=== PATIENT | female | born 1965 | race Caucasian/White ===

== ENCOUNTER → 2018-06-06 13:40 | Outpatient (REF) | payer MEDICAID, SELFPAY ==
[2018-06-06 18:45] LABS: Basophils % 0.7 % (0.1-2.0); Eosinophils # 0.4 K/mm3 (0.0-0.4); Eosinophils % 5.8 % (0.1-12.0); Hematocrit 43.5 % (37.0-47.0); Hemoglobin 13.1 g/dL (12.2-16.2); Lymphocytes # 1.9 K/mm3 (0.7-4.5); Lymphocytes % 30.3 K/mm3 (10-50); Mean Corpuscular HGB Conc 30.2 g/dL (31.8-35.4); Mean Corpuscular Hemoglobin 29.8 pg (27.0-31.2); Mean Corpuscular Volume 98.7 fl (81-99); Mean Platelet Volume 8.9 fl (7.4-10.4); Monocytes # 0.4 K/mm3 (0.1-1.0); Monocytes % 6.6 % (1.7-9.3); Neutrophils # 3.5 K/mm3 (1.8-7.8); Neutrophils % 56.6 % (37.0-80.0); Platelet Count 184 K/mm3 (142-424); Red Cell Distribution Width 14.7 % (11.5-17.5); White Blood Count 6.2 K/mm3 (4.8-10.8)
[2018-06-06 19:11] LABS: Alanine Aminotransferase 127 U/L (12-78); Albumin Level 3.7 gm/dL (3.4-5.0); Albumin/Globulin Ratio 0.9 (1.1-1.8); Alkaline Phosphatase 111 U/L (46-116); Anion Gap 10.4 mEq/L (5-15); Aspartate Amino Transferase 194 U/L (15-37); Bilirubin,Total 0.6 mg/dL (0.2-1.0); Blood Urea Nitrogen 9 mg/dL (7-18); Carbon Dioxide 30 mmol/L (21.0-32.0); Chloride 110 mmol/L (98-107); Chol/HDL Ratio 4.5 (1-3.5); Cholesterol 107 mg/dL (140-200); Creatinine,Serum 0.83 mg/dL (0.55-1.02); Estimated Glomerular Filt Rate 72 ml/min (>60); Free T4 (Free Thyroxine) 0.87 ng/dl (0.76-1.46); GFR (African American) 87 ML/MIN (>60); Globulin 4.3 gm/dl (1.3-3.2); Glucose 97 mg/dL (74-106); HDL Cholesterol 24 mg/dL (29-89); LDL Cholesterol 59 mg/dL (0-130); Potassium 4.4 mmoL/L (3.5-5.1); Sodium 146 mmol/L (136-145); Thyroid Stimulating Hormone 1.33 uIU/ml (0.358-3.740); Triglycerides 119 mg/dL (30-200); VLDL Cholesterol 24 mg/dL (0-40)
[2018-06-06 19:40] LABS: Erythrocyte Sedimentation Rate 8 mm/hr (0-30)
[2018-06-06 20:11] LABS: Hemoglobin A1C 4.3 % (0.0-7.0)
[2018-06-09 09:08] LABS: Folate 6.6 ng/mL (>3.0); Vitamin B12 511 pg/mL (232-1245); Vitamin D 25 Hydroxy 27.4 ng/mL (30.0-100.0)
== END ==
LOC: LAB 13:40
PROVIDERS: Visit Provider Nurse Practitioner Family
DX: Z79.899 Other long term (current) drug therapy (principal); R53.83 Other fatigue; M25.50 Pain in unspecified joint; R19.5 Other fecal abnormalities
CPT/HCPCS: 80053; 80061; 82607; 82652; 82746; 83036; 84439; 84443; 85025; 85651

== ENCOUNTER → 2019-07-11 14:33 | Outpatient (CLI) | payer MEDICAID, SELFPAY ==
--- NOTE | 2019-07-11 14:58 | XR_ITS ---
PROCEDURE: XR CHEST 2V CLINICAL HISTORY: cough Cough, smoker COMPARISON: CXR CHEST(2 VIEWS-NOT PORTABLE) from 05/21/2016 FINDINGS: The cardiomediastinal silhouette and pulmonary vascularity are within normal limits.Mild hyperinflation with increased AP diameter of the chest consistent with COPD. No lobar consolidation or collapseno acute bony abnormalities. IMPRESSION: No change with no acute finding, COPD Dictated by: Cristiano Tuttle MD 07/11/2019 15:25 Signed by: <Electronically signed by Cristiano Tuttle MD in [place]> 07/11/2019 15:25
[2019-07-11 15:26] LABS: INR 1.05 (0.9-1.1); Prothrombin Time 10.9 seconds (9.4-11.8)
[2019-07-11 15:30] LABS: Basophils # 0.1 K/mm3 (0-0.2); Basophils % 0.4 % (0.1-2.0); Eosinophils # 0.5 K/mm3 (0.0-0.4); Eosinophils % 3.5 % (0.1-12.0); Hematocrit 36.6 % (37.0-47.0); Hemoglobin 11.8 g/dL (12.2-16.2); Lymphocytes # 1.8 K/mm3 (0.7-4.5); Mean Corpuscular HGB Conc 32.3 g/dL (31.8-35.4); Mean Corpuscular Hemoglobin 34.5 pg (27.0-31.2); Mean Corpuscular Volume 106.8 fl (81-99); Mean Platelet Volume 7.5 fl (7.4-10.4); Monocytes # 0.6 K/mm3 (0.1-1.0); Monocytes % 4.4 % (1.7-9.3); Neutrophils # 10.9 K/mm3 (1.8-7.8); Neutrophils % 78.7 % (37.0-80.0); Platelet Count 311 K/mm3 (142-424); Red Blood Count 3.43 M/mm3 (4.20-5.40); Red Cell Distribution Width 15.3 % (11.5-17.5); White Blood Count 13.9 K/mm3 (4.8-10.8)
[2019-07-11 16:06] LABS: Alanine Aminotransferase 106 U/L (12-78); Albumin Level 3.4 gm/dL (3.4-5.0); Albumin/Globulin Ratio 0.7 (1.1-1.8); Alkaline Phosphatase 111 U/L (46-116); Anion Gap 13.4 mEq/L (5-15); Aspartate Amino Transferase 110 U/L (15-37); Bilirubin,Total 0.5 mg/dL (0.2-1.0); Blood Urea Nitrogen 18 mg/dL (7-18); Carbon Dioxide 27 mmol/L (21.0-32.0); Chloride 103 mmol/L (98-107); Chol/HDL Ratio 6.4 (1-3.5); Cholesterol 83 mg/dL (140-200); Creatinine,Serum 0.89 mg/dL (0.55-1.02); Estimated Glomerular Filt Rate 66 ml/min (>60); GFR (African American) 80 ML/MIN (>60); Globulin 4.7 gm/dl (1.3-3.2); Glucose 100 mg/dL (74-106); HDL Cholesterol 13 mg/dL (29-89); LDL Cholesterol 50 mg/dL (0-130); Potassium 3.4 mmoL/L (3.5-5.1); Sodium 140 mmol/L (136-145); Thyroid Stimulating Hormone 0.14 uIU/ml (0.358-3.740); Total Protein,Serum 8.1 gm/dL (6.4-8.2); Triglycerides 98 mg/dL (30-200); VLDL Cholesterol 20 mg/dL (0-40)
[2019-07-13 07:18] LABS: HIV Screen 4th Generation wRfx Non Reactive (Non Reactive); Hep B Core Ab, Total Negative (Negative); Hepatitis B Surface Antigen Negative (Negative)
[2019-07-14 09:41] LABS: Hep A Ab, Total Negative (Negative); Hepatitis B Surf Ab Quant <3.1 mIU/mL (Immunity>9.9); Hepatitis C Antibody >11.0 s/co ratio (0.0-0.9)
[2019-07-14 09:42] LABS: Vitamin D 25 Hydroxy 24.7 ng/mL (30.0-100.0)
[2019-07-16 23:07] LABS: HCV Genotype Charge YES; Hepatitis C Genotype 3 (.)
== END ==
PROVIDERS: PCP Emergency Medicine; Visit Provider Nurse Practitioner Family
DX: R53.83 Other fatigue (principal); Z86.19 Personal history of other infectious and parasitic diseases; R05 Cough; R06.2 Wheezing; F17.200 Nicotine dependence, unspecified, uncomplicated; E55.9 Vitamin D deficiency, unspecified
CPT/HCPCS: 36415; 71046; 80053; 80061; 82652; 84439; 84443; 85025; 85610; 86703; 86704; 86706; 86708; 87340; 87380; 87522; 87902; G0432

== ENCOUNTER → 2020-09-06 12:36 | Outpatient (CLI) | payer MEDICAID, SELFPAY ==
[2020-09-07 16:51] LABS: Covid-19 Nasal PCR Sendout UK Not Detected
== END ==
PROVIDERS: PCP Physician Assistant; Visit Provider Physician Assistant
DX: Z03.818 Encounter for observation for suspected exposure to other biological agents ruled out (principal)
CPT/HCPCS: U0003

== ENCOUNTER → 2021-07-31 19:51 | Outpatient (CLI) | payer MEDICAID, SELFPAY ==
[2021-07-31 20:23] LABS: Basophils # 0.1 K/mm3 (0-0.2); Basophils % 1.1 % (0.1-2.0); Eosinophils # 0.3 K/mm3 (0.0-0.4); Eosinophils % 4.1 % (0.1-12.0); Hematocrit 39.2 % (37.0-47.0); Hemoglobin 12.4 g/dL (12.2-16.2); Lymphocytes # 1.8 K/mm3 (0.7-4.5); Lymphocytes % 29.4 % (10-50); Mean Corpuscular HGB Conc 31.6 g/dL (31.8-35.4); Mean Corpuscular Hemoglobin 31.9 pg (27.0-31.2); Mean Corpuscular Volume 100.8 fl (81-99); Mean Platelet Volume 9.7 fl (7.4-10.4); Monocytes # 0.4 K/mm3 (0.1-1.0); Monocytes % 6.2 % (1.7-9.3); Neutrophils # 3.6 K/mm3 (1.8-7.8); Neutrophils % 59.3 % (37.0-80.0); Platelet Count 253 K/mm3 (142-424); Red Blood Count 3.89 M/mm3 (4.20-5.40); Red Cell Distribution Width 15.4 % (11.5-17.5); White Blood Count 6.1 K/mm3 (4.8-10.8)
[2021-07-31 20:39] LABS: Blood Urea Nitrogen 21 mg/dl (7-17); Estimated Glomerular Filt Rate 104 ml/min (>60); GFR (African American) 126 ML/MIN (>60)
[2021-07-31 20:40] LABS: Alanine Aminotransferase 127 U/L (12-78); Albumin Level 4.1 g/dl (3.5-5.0); Albumin/Globulin Ratio 1.1 (1.1-1.8); Alkaline Phosphatase 82 U/L (38-126); Aspartate Amino Transferase 164 U/L (14-36); Bilirubin,Total 0.3 mg/dl (0.2-1.3); Calcium 9.4 mg/dl (8.4-10.2); Carbon Dioxide 21 mmol/L (22.0-30.0); Globulin 3.9 g/dL (1.3-3.2); Glucose 101 mg/dl (74-100)
[2021-07-31 20:45] LABS: Prothrombin Time 11.9 seconds (10.1-12.5)
[2021-07-31 21:01] LABS: Anion Gap 15.4 mEq/L (5-15); Chloride 107 mmol/L (98-107); Potassium 4.4 mmoL/L (3.5-5.1); Sodium 139 mmol/L (136-145)
[2021-07-31 21:16] LABS: INR 1.01 (0.9-1.1)
[2021-08-02 05:14] LABS: Hep A Ab, IgM Negative (Negative); Hep A Ab, Total Negative (Negative); Hep B Core Ab, Total Negative (Negative); Hep B Surface Ab, Qual Non Reactive (.); Hepatitis B Surface Antigen Negative (Negative); Hepatitis C Antibody >11.0 s/co ratio (0.0-0.9)
[2021-08-02 10:31] LABS: HIV Screen 4th Generation wRfx Non Reactive (Non Reactive)
[2021-08-04 12:27] LABS: ALT (SGPT) P5P 119 IU/L (0-40); Alpha 2-Macroglobulins, Qn 347 mg/dL (110-276); Apolipoprotein A-1 96 mg/dL (116-209); Bilirubin, Total 0.2 mg/dL (0.0-1.2); Fibrosis Score 0.64 (0.00-0.21); GGT 82 IU/L (0-60); Haptoglobin 49 mg/dL (33-346); Necroinflammat Activity Grade A3-Severe activity (.); Necroinflammat Activity Score 0.75 (0.00-0.17)
[2021-08-06 13:40] LABS: HCV Genotype Charge YES; Hepatitis C Genotype 3 (.)
== END ==
PROVIDERS: Visit Provider Physician Assistant
DX: B19.20 Unspecified viral hepatitis C without hepatic coma (principal); Z11.4 Encounter for screening for human immunodeficiency virus [HIV]
CPT/HCPCS: 80053; 81596; 85025; 85610; 86703; 86704; 86706; 86708; 87340; 87380; 87522; 87902; G0432

== ENCOUNTER → 2023-08-02 23:42 | Outpatient (CLI) | payer MEDICAID, SELFPAY ==
[2023-08-02 18:57] LABS: Alanine Aminotransferase 162 U/L (12-78); Albumin Level 4.7 g/dl (3.5-5.0); Anion Gap 15.8 mEq/L (5-15); Aspartate Amino Transferase 173 U/L (14-36); Bilirubin,Total 0.5 mg/dl (0.2-1.3); Blood Urea Nitrogen 21 mg/dl (7-17); Calcium 10.1 mg/dl (8.4-10.2); Carbon Dioxide 28 mmol/L (22.0-30.0); Chloride 102 mmol/L (98-107); Estimated Glomerular Filt Rate 74 ml/min (>60); GFR (African American) 89 ML/MIN (>60); Globulin 4.7 g/dL (1.3-3.2); Glucose 88 mg/dl (74-100); Potassium 5.8 mmoL/L (3.5-5.1); Sodium 140 mmol/L (136-145); Total Protein,Serum 9.4 g/dl (6.3-8.2); Triglycerides 149 mg/dl (30-150)
[2023-08-02 18:58] LABS: Alkaline Phosphatase 94 U/L (38-126); Chol/HDL Ratio 4.9 (1-3.5); Cholesterol 143 mg/dl (140-200); HDL Cholesterol 29 mg/dl (40-60); VLDL Cholesterol 30 mg/dL (0-40)
[2023-08-02 19:09] LABS: Direct LDL Cholesterol 82.66 mg/dL (100-129)
[2023-08-02 19:17] LABS: 25-OH Vitamin D, Total 47.2 ng/mL (30-100)
[2023-08-02 19:19] LABS: Basophils % 0.7 % (0.1-2.0); Eosinophils # 0.3 K/mm3 (0.0-0.4); Hematocrit 45.3 % (37.0-47.0); Hemoglobin 13.8 g/dL (12.2-16.2); Lymphocytes # 1.7 K/mm3 (0.7-4.5); Lymphocytes % 25.5 % (10-50); Mean Corpuscular HGB Conc 30.4 g/dL (31.8-35.4); Mean Corpuscular Hemoglobin 30.2 pg (27.0-31.2); Mean Corpuscular Volume 99.4 fl (81-99); Mean Platelet Volume 10.4 fl (7.4-10.4); Monocytes # 0.5 K/mm3 (0.1-1.0); Monocytes % 7.4 % (1.7-9.3); Neutrophils # 4.1 K/mm3 (1.8-7.8); Neutrophils % 62.4 % (37.0-80.0); Platelet Count 226 K/mm3 (142-424); Red Blood Count 4.56 M/mm3 (4.20-5.40); Red Cell Distribution Width 13.5 % (11.5-17.5); White Blood Count 6.6 K/mm3 (4.8-10.8)
[2023-08-02 19:30] LABS: Thyroid Stimulating Hormone 0.83 uIU/mL (0.465-4.68)
[2023-08-02 19:48] LABS: Vitamin B12 904 pg/mL (239-931)
[2023-08-04 09:55] LABS: HIV Screen 4th Generation wRfx Non Reactive (Non Reactive)
[2023-08-06 00:07] LABS: HCV Genotype Charge YES; Hepatitis C Genotype 3 (.)
[2023-08-09 12:18] LABS: Hep A Ab, Total Negative; Hepatitis B Surface Antigen Non Reactive
[2023-08-09 12:20] LABS: Hep B Core Ab, Total Non Reactive; Hep B Surface Ab, Qual Non Reactive
[2023-08-09 12:21] LABS: Hepatitis C Antibody Reactive
[2023-08-09 12:22] LABS: Fibrosis Score 0.86
[2023-08-09 12:23] LABS: Necroinflammat Activity Grade A3; Necroinflammat Activity Score 0.87
[2023-08-09 12:24] LABS: Alpha 2-Macroglobulins, Qn 404; Haptoglobin 46
[2023-08-09 12:25] LABS: Apolipoprotein A-1 92; Bilirubin, Total 0.3
[2023-08-09 12:26] LABS: ALT (SGPT) P5P 161; GGT 246
== END ==
LOC: LAB.DROPOF 23:43
PROVIDERS: PCP Physician Assistant; Visit Provider Physician Assistant
DX: B19.20 Unspecified viral hepatitis C without hepatic coma (principal); M19.90 Unspecified osteoarthritis, unspecified site; F41.9 Anxiety disorder, unspecified; F32.9 Major depressive disorder, single episode, unspecified; I10 Essential (primary) hypertension; J44.9 Chronic obstructive pulmonary disease, unspecified; Z87.891 Personal history of nicotine dependence
CPT/HCPCS: 80053; 80061; 81596; 82306; 82607; 84443; 85025; 86703; 86704; 86706; 86708; 87340; 87380; 87522; 87902; G0432

== ENCOUNTER → 2023-08-25 16:20 | Outpatient (CLI) | payer MEDICAID, SELFPAY ==
[2023-08-27 08:53] LABS: Hep B Core Ab, Total Negative (Negative); Hep B Surface Ab, Qual Non Reactive (.)
== END ==
PROVIDERS: PCP Physician Assistant; Visit Provider Physician Assistant
DX: B19.20 Unspecified viral hepatitis C without hepatic coma (principal)
CPT/HCPCS: 36415; 86704; 86706

== ENCOUNTER 2023-09-07 19:45 | Observation (INO) | payer MEDICAID, SELFPAY ==
[2023-09-07 19:46] VITALS: BP 102/63; PULSE 95; RESP 22; TEMP 37; O2SAT 96; BMI 15.7
--- NOTE | 2023-09-07 20:19 | XR_ITS ---
PROCEDURE INFORMATION: Exam: XR Chest Exam date and time: 09/07/2023 8:28 PM Age: 57 years old Clinical indication: Cough and shortness of breath; Smoker's cough; Additional info: SOB, cough, copd, . productive cough with thickening white mucus TECHNIQUE: Imaging protocol: Radiologic exam of the chest. Views: 2 views. COMPARISON: DX XR CHEST 2V 07/11/2019 2:59 PM FINDINGS: Lungs: Underlying changes of COPD. Pulmonary vasculature grossly normal. Peribronchial thickening and perihilar streaking which may relate to bronchitis and perihilar subsegmental atelectasis. There are alveolar densities in the medial lung bases and peripheral right base which could represent atelectasis or basilar pneumonia. Possible mild component in the peripheral right mid lung as well. Left hilar granulomatous calcifications again noted. Pleural spaces: No pleural effusion. No pneumothorax. Heart/Mediastinum: Heart size normal. No tracheal/mediastinal shift. Bones/joints: No acute osseous abnormalities are identified. IMPRESSION: 1. Alveolar opacities in the medial lung bases and peripheral right base concerning for multifocal pneumonia versus atelectasis. Possible mild element in the peripheral right mid lung as well. 2. Bilateral bronchial wall thickening and perihilar streaking suggests bronchitis. 3. Underlying COPD.
--- NOTE | 2023-09-07 20:20 | HMH.EDGENADL ---
Discharge Plan Disposition Patient Disposition: Admitted Chief Complaint: Shortness of Breath/Dyspnea Prescriptions Prescriptions: No Action sertraline 100 mg tablet 100 mg PO DAILY Qty: 30 2RF metoprolol succinate [Toprol XL] 25 mg tablet extended release 24 hr 25 mg PO DAILY Qty: 30 2RF hydroxyzine pamoate [Vistaril] 50 mg capsule 50 mg PO TID PRN (Reason: anxiety) Qty: 90 2RF trazodone 50 mg tablet 50 mg PO QHS Qty: 90 3RF Referrals Follow up/Referrals: Lenore Rosales PA [Primary Care Provider] - See instructions Clinical Impressions Clinical Impression: Sepsis due to pneumonia, Asthma exacerbation in COPD, Transaminitis Discharge ED Provider: [facility] HPI General Chief complaint: Shortness of Breath/Dyspnea Stated complaint: SOA, body aches Time Seen by Provider: 09/07/23 19:52 Mode of Arrival: Wheelchair Source of Information: Patient Limitations: No Limitations Description of Symptoms (Recalled from ER Triage Doc. by RN): pt has been dealing with SOA, cough, bodyaches, for 1 week and has been treating it with OTC meds, is here today b/c is not gettng any better and pt has COPD. History of Present Illness HPI narrative: Patient is a 57-year-old male past medical history of COPD not on home oxygen, hepatitis C who presents emergency department for evaluation of shortness of breath and cough. Onset was acute, occurring approximately 1 week ago. Productive cough with persistent cough. Patient quit smoking approximately 4 days ago and has multi pack-year history. There is associated chest pain only when coughing. Decreased p.o. intake from baseline due to loss of appetite, no vomiting. No other acute complaints at this time. Related Data Previous Rx's Medication Instructions Recorded hydroxyzine pamoate 50 mg capsule 50 mg PO TID PRN anxiety #90 caps 08/02/23 (Vistaril) metoprolol succinate 25 mg 25 mg PO DAILY #30 tabs 08/02/23 tablet,extended release 24 hr (Toprol XL) sertraline 100 mg tablet 100 mg PO DAILY #30 tabs 08/02/23 trazodone 50 mg tablet 50 mg PO QHS #90 tabs 08/02/23 Allergies Allergy/AdvReac Type Severity Reaction Status Date / Time No Known Allergies Allergy Verified 08/02/23 11:29 [facility] Disclaimer: The information contained in this section may have been updated after the patient was seen, as this information can be updated by other users. Medical History Anxiety Chest pain COPD (chronic obstructive pulmonary disease) Hepatitis C Hypertension Nicotine dependence Personal history of nicotine dependence Smoker Social History Smoking Status: Current every day smoker tobacco type: cigarettes packs per day: 1 alcohol intake: current substance use type: denies use current occupational status: employed Travel in the last 8 weeks: None household members: spouse, family and children housing: house caffeine: Yes ROS Obtained: Yes Systems reviewed as appropriate & no additional complaints except as documented Physical Exam General General appearance: alert and in no apparent distress Head Head exam: atraumatic and normocephalic Eye Eye exam: Present PERRL and EOMI ENT ENT exam: Present mucous membranes moist Neck Neck exam: Present normal inspection Chest Chest inspection: Present normal inspection and symmetric chest wall rise Respiratory Respiratory exam: Present wheezes and prolonged expiratory phase; Absent normal lung sounds bilaterally (Diffuse rhonchi) or respiratory distress Cardiovascular Cardiovascular exam: Present regular rate, normal rhythm and other (No pitting edema) Abdominal Exam Abdominal exam: Present soft Extremities Exam Extremities exam: Present normal inspection Neurological Exam Neurological exam: Present alert Psychiatric Psychiatric exam: Present normal affect Skin Skin exam: Present warm and dry [facility]
--- NOTE | 2023-09-07 20:23 | PC.NURSE ---
respiratory notified of new orders
[2023-09-07 20:30] VITALS: PULSE 88
--- NOTE | 2023-09-07 20:30 | ECG_ITS ---
APPROVED REPORT Exam: Resting ECG HR:87 bpm ECG Measurements Heart Rate 87 AXES IA 133 P 74 QRSd 74 QRS 80 QT 356 T 74 QTc 400 Conclusion SINUS RHYTHM VOLTAGE CRITERIA FOR LVH [MEETS CRITERIA IN ONE OF: R(aVL), S(V1), R(V5), R(V5/V6)+S(V1)] MODERATE ST DEPRESSION [0.05+ mV ST DEPRESSION] ABNORMAL ECG UNCONFIRMED REPORT Electronically signed by : Ananth Santillan MD 09/08/2023 07:53:09
[2023-09-07 20:31] LABS: Coronavirus 19, PCR Not Detected (NotDetected); Influenza A, PCR Not Detected (NotDetected); Influenza B, PCR Not Detected (NotDetected)
[2023-09-07 21:00] VITALS: PULSE 89
[2023-09-07 21:26] LABS: VBG Base Excess -3.6 mmol/L (-2.4-2.3); VBG Oxygen Saturation 50.7 % (50-70); VBG PCO2 40.3 mmol/L (35-51); VBG PH 7.35 mmol/L (7.31-7.41); VBG PO2 28.4 mmol/L (28-40); VBG Total CO2 23.2 mmol/L (23-27)
[2023-09-07 21:28] LABS: Basophils % 0.3 % (0.1-2.0); Eosinophils # 0.1 K/mm3 (0.0-0.4); Hematocrit 35.9 % (37.0-47.0); Hemoglobin 12.3 g/dL (12.2-16.2); Lymphocytes # 2.4 K/mm3 (0.7-4.5); Lymphocytes % 19.9 % (10-50); Mean Corpuscular HGB Conc 34.2 g/dL (31.8-35.4); Mean Corpuscular Hemoglobin 32.8 pg (27.0-31.2); Mean Corpuscular Volume 95.9 fl (81-99); Mean Platelet Volume 8.4 fl (7.4-10.4); Monocytes # 0.7 K/mm3 (0.1-1.0); Monocytes % 5.7 % (1.7-9.3); Neutrophils # 8.8 K/mm3 (1.8-7.8); Neutrophils % 73.1 % (37.0-80.0); Platelet Count 260 K/mm3 (142-424); Red Blood Count 3.74 M/mm3 (4.20-5.40); Red Cell Distribution Width 13.4 % (11.5-17.5); White Blood Count 12.1 K/mm3 (4.8-10.8)
[2023-09-07 21:48] LABS: Chloride 103 mmol/L (98-107); Potassium 3.4 mmoL/L (3.5-5.1); Sodium 135 mmol/L (136-145)
[2023-09-07 21:51] LABS: Alanine Aminotransferase 113 U/L (12-78); Albumin Level 3.5 g/dl (3.5-5.0); Albumin/Globulin Ratio 0.7 (1.1-1.8); Alkaline Phosphatase 129 U/L (38-126); Anion Gap 11.4 mEq/L (5-15); Aspartate Amino Transferase 116 U/L (14-36); Bilirubin,Total 0.9 mg/dl (0.2-1.3); Blood Urea Nitrogen 13 mg/dl (7-17); Calcium 8.5 mg/dl (8.4-10.2); Carbon Dioxide 24 mmol/L (22.0-30.0); Creatinine Clearance Estimated 70 mL/min (50-200); Estimated Glomerular Filt Rate 103 ml/min (>60); GFR (African American) 125 ML/MIN (>60); Globulin 4.7 g/dL (1.3-3.2); Glucose 138 mg/dl (74-100); Total Protein,Serum 8.2 g/dl (6.3-8.2)
[2023-09-07 22:00] LABS: Lactic Acid 1.6 mmol/L (0.7-2.1)
--- NOTE | 2023-09-07 22:02 | EXP.HP ---
History of Present Illness *Admission Date: 09/07/23 *Reason for visit:: pneumonia *History of present illness: 57 year old female presented to the ED with c/o SOB and cough for the past week. PMHX of htn, anxiety, depression, copd, and hep C. She states she has felt so bad that she has not been able to smoke a cigarette in four days. Recent illness exposure to her who was ill last week. In the ED she presented with a leukoycotsis, tachypnea, and pneumonia in her right lobe. She was started on Rocephin and azithromycin IV in the ED. The ED physician consulted the hospitalist team for further medical management. She is admitted to the medical floor in no acute distress. No oxygen requirments. She is without wheezing on exam. [facility] Disclaimer: The information contained in this section may have been updated after the patient was seen, as this information can be updated by other users. Medical History Anxiety Chest pain COPD (chronic obstructive pulmonary disease) Hepatitis C Hypertension Nicotine dependence Personal history of nicotine dependence Smoker Social History Smoking Status: Current every day smoker tobacco type: cigarettes packs per day: 1 alcohol intake: current substance use type: denies use current occupational status: employed Travel in the last 8 weeks: None household members: spouse, family and children housing: house caffeine: Yes Review of Systems *Cardiovascular Cardiovascular: Reports system reviewed and no additional complaints, except as documented and Reports dyspnea *Respiratory Respiratory: Reports dyspnea *Gastrointestinal Gastrointestinal: Reports system reviewed and no additional complaints, except as documented *Genitourinary Genitourinary: Reports system reviewed and no additional complaints, except as documented *Musculoskeletal Musculoskeletal: Reports system reviewed and no additional complaints, except as documented *Neurologic Neurologic: Reports system reviewed and no additional complaints, except as documented Meds Home Medications and Allergies Home Medications Medication Instructions Recorded Confirmed Type hydroxyzine pamoate 50 mg capsule 50 mg PO TID PRN anxiety #90 caps 08/02/23 08/02/23 Rx (Vistaril) metoprolol succinate 25 mg 25 mg PO DAILY #30 tabs 08/02/23 08/02/23 Rx tablet,extended release 24 hr (Toprol XL) sertraline 100 mg tablet 100 mg PO DAILY #30 tabs 08/02/23 08/02/23 Rx trazodone 50 mg tablet 50 mg PO QHS #90 tabs 08/02/23 08/02/23 Rx New Prescriptions to Start Prescriptions: Allergies Allergy/AdvReac Type Severity Reaction Status Date / Time No Known Allergies Allergy Verified 08/02/23 11:29 Exam Data for Last 24 hours Vital signs and Labs for Last 24 Hours: Temp Pulse Resp BP Pulse Ox O2 Del Method 98.6 F 95 H 22 102/63 L 96 Room Air 09/07/23 19:46 09/07/23 19:46 09/07/23 19:46 09/07/23 19:46 09/07/23 19:46 09/07/23 19:46 Laboratory Results - last 24 hr 09/07/23 20:19: VBG pH 7.35, VBG pCO2 40.3, VBG pO2 28.4, VBG HCO3 22.0 L, VBG Total CO2 23.2, VBG O2 Saturation 50.7, VBG Base Excess -3.6 L 09/07/23 20:25: SARS-CoV-2 (PCR) Not detected, Influenza A Untype (PCR) Not detected, Influenza Type B (PCR) Not detected 09/07/23 21:00: WBC 12.1 H, RBC 3.74 L, Hgb 12.3, Hct 35.9 L, MCV 95.9, MCH 32.8 H, MCHC 34.2, RDW 13.4, Plt Count 260, MPV 8.4, Neut % (Auto) 73.1, Lymph % (Auto) 19.9, [place] % (Auto) 5.7, Eos % (Auto) 1.0, Baso % (Auto) 0.3, Neut # (Auto) 8.8 H, Lymph # (Auto) 2.4, [place] # (Auto) 0.7, Eos # (Auto) 0.1, Baso # (Auto) 0.0, Sodium 135 L, Potassium 3.4 L, Chloride 103, Carbon Dioxide 24, Anion Gap 11.4, BUN 13, Creatinine 0.60, Estimated Creat Clear 70, Estimated GFR 103, Est GFR ( Amer) 125, Glucose 138 H, Calcium 8.5, Total Bilirubin 0.9, AST 116 H, ALT 113 H, Alkaline Phosphatase 129 H, Total Protein 8.2, Albumin 3.5, Globulin 4.7
--- NOTE | 2023-09-07 22:06 | PC.NURSE ---
call placed to house for admit
[2023-09-07 22:08] LABS: Troponin I < 0.01 ng/ml (0.00-0.034)
--- NOTE | 2023-09-07 22:24 | PC.NURSE ---
called report jus Alvarado RN on 2nd floor and answered all questions
[2023-09-07 22:41] VITALS: BP 121/70; PULSE 100; RESP 20; TEMP 36.6; O2SAT 99
[2023-09-07 22:49] VITALS: BP 121/71; PULSE 81; RESP 18; TEMP 36.8; O2SAT 95; BMI 16.0
[2023-09-07 23:56] VITALS: BP 119/69; PULSE 83; RESP 18; TEMP 37.5; O2SAT 97
[2023-09-08 00:25] LABS: Troponin I < 0.01 ng/ml (0.00-0.034)
[2023-09-08 03:08] LABS: Troponin I < 0.01 ng/ml (0.00-0.034)
[2023-09-08 04:00] VITALS: BP 126/75; PULSE 63; RESP 18; TEMP 36.5; O2SAT 97; BMI 16.0
--- NOTE | 2023-09-08 05:39 | PC.NURSE ---
admitted for pneumonia, on room air, sputum sent to lab, abx and steroids given
[2023-09-08 06:46] LABS: Chloride 107 mmol/L (98-107); Potassium 3.6 mmoL/L (3.5-5.1); Sodium 138 mmol/L (136-145)
--- NOTE | 2023-09-08 06:48 | EXP.SEPSISRE ---
[facility] Tissue Perfusion Eval Sepsis Re-Evaluation Performed: Yes Date Performed: 09/08/23 Time Performed: 00:00
[2023-09-08 06:49] LABS: Anion Gap 13.6 mEq/L (5-15); Blood Urea Nitrogen 13 mg/dl (7-17); Calcium 8.3 mg/dl (8.4-10.2); Carbon Dioxide 21 mmol/L (22.0-30.0); Creatinine Clearance Estimated 86 mL/min (50-200); Estimated Glomerular Filt Rate 127 ml/min (>60); GFR (African American) 154 ML/MIN (>60); Glucose 199 mg/dl (74-100)
[2023-09-08 06:52] LABS: Basophils % 0.1 % (0.1-2.0); Eosinophils % 0.1 % (0.1-12.0); Hematocrit 36.1 % (37.0-47.0); Hemoglobin 12.5 g/dL (12.2-16.2); Lymphocytes # 0.9 K/mm3 (0.7-4.5); Lymphocytes % 7.7 % (10-50); Mean Corpuscular HGB Conc 34.5 g/dL (31.8-35.4); Mean Corpuscular Volume 95.6 fl (81-99); Mean Platelet Volume 8.7 fl (7.4-10.4); Monocytes # 0.4 K/mm3 (0.1-1.0); Monocytes % 3.3 % (1.7-9.3); Neutrophils # 9.8 K/mm3 (1.8-7.8); Neutrophils % 88.9 % (37.0-80.0); Platelet Count 251 K/mm3 (142-424); Red Blood Count 3.78 M/mm3 (4.20-5.40); Red Cell Distribution Width 13.3 % (11.5-17.5); White Blood Count 11.1 K/mm3 (4.8-10.8)
[2023-09-08 06:57] LABS: MANUAL DIFFERENTIAL MANUAL DIFFERENTIAL (MANUAL DIFF)
[2023-09-08 07:10] VITALS: BP 139/85; PULSE 67; RESP 17; TEMP 36.4; O2SAT 98
--- NOTE | 2023-09-08 07:13 | HMH.PHAINT1 ---
Pharmacy Intervention Comments: MEDICATION RECONCILIATION COMPLETED ON PATIENT USING EXTERNAL FILL HISTORY FROM PHARMACY. -ENMANUEL LONDONO, KAIND
[2023-09-08 07:55] LABS: Lymphocytes % 1 % (10-50); Monocytes % 7 % (2-9); Neutrophils % 88 % (42-76); Total Cells Counted 100
[2023-09-08 07:57] LABS: Anisocytosis 1+; Platelet Estimate Normal; RBC Morphology Normal
--- NOTE | 2023-09-08 10:12 | PC.NURSE ---
Courtesy Round Patient laying in bed with daughter at bedside. Trash emptied and ice water refused at this time. Call light within reach .
--- NOTE | 2023-09-10 11:05 | CARE MANAGER ---
Contacted patient related to hospital discharge. She states she is feeling better. She denies any questions or concerns. She has her new medications and is aware of follow up appointment. LOW Aj
--- NOTE | 2023-09-12 19:45 | EXP.DC.SUM ---
General Admission date:: 09/07/23 Discharge date: 09/08/23 HPI HPI HPI: 57 year old female presented to the ED with c/o SOB and cough for the past week. PMHX of htn, anxiety, depression, copd, and hep C. She states she has felt so bad that she has not been able to smoke a cigarette in four days. Recent illness exposure to her who was ill last week. In the ED she presented with a leukoycotsis, tachypnea, and pneumonia in her right lobe. She was started on Rocephin and azithromycin IV in the ED. The ED physician consulted the hospitalist team for further medical management. She is admitted to the medical floor in no acute distress. No oxygen requirments. She is without wheezing on exam. Hospital Course Hospital Course Hospital Course: 57 year old female presented to the ED with c/o SOB and cough for the past week. PMHX of htn, anxiety, depression, copd, and hep C. She states she has felt so bad that she has not been able to smoke a cigarette in four days. Recent illness exposure to her who was ill last week. In the ED she presented with a leukoycotsis, tachypnea, and pneumonia in her right lobe. She was started on Rocephin and azithromycin IV in the ED. The ED physician consulted the hospitalist team for further medical management. She is admitted to the medical floor in no acute distress. No oxygen requirments. She is without wheezing on exam. Plan as to follow: SEPSIS- resolved PNEUMONIA - improved COPD EXACERBATION improved HEP C -complicates all aspects of care -elevated AST 116, ALT 113, and Alk phosphate 129 HTN ANXIETY -continue home medication -> awaiting med rec TOBACCO ABUSE -nicotine patch prn Patient was treated for the above conditions, improved after treatment, patient feels better and wishes to be discharged home, patient stable for discharge. Prescriptions sent and f/u information was given to Ms. ocampo who verbalized understanding and agreed with DC plan Exam Data for Last 24 hours Vital signs and Labs for Last 24 Hours: Temp Pulse Resp BP Pulse Ox O2 Del Method 97.6 F 67 17 139/85 98 Room Air 09/08/23 07:10 09/08/23 07:10 09/08/23 07:10 09/08/23 07:10 09/08/23 07:10 09/08/23 11:00 Microbiology Reports for the Last 24 Hours: Microbiology 09/07/23 23:30 Sputum - Expectorated Sputum Gram Stain - Final 09/07/23 23:30 Sputum - Expectorated Sputum Sputum Culture - Final Constitutional Constitutional: no acute distress *Routine HEENT Exam Head: Present normocephalic Eye: Present EOMI and PERRL ENT: Present mucous membranes moist *Routine Neck Exam Neck: Present supple; Absent lymphadenopathy *Routine Respiratory Exam Respiratory: Present CTA bilaterally *Routine Cardiovascular Exam Cardiovascular: Present RRR *Routine Abdominal Exam Abdominal: Present soft and normoactive bowel sounds; Absent tenderness *Routine Extremities Exam Extremities: Absent cyanosis, clubbing or edema *Routine Skin Exam Skin: Present warm; Absent rash *Routine Neurological Exam Neurological: Present alert and oriented X3 DS: Diagnosis Discharge Diagnosis (1) Sepsis: Status: Resolved Code(s): A41.9 - Sepsis, unspecified organism (2) Pneumonia: Status: Acute Code(s): J18.9 - Pneumonia, unspecified organism (3) COPD (chronic obstructive pulmonary disease): Status: Chronic Code(s): J44.9 - Chronic obstructive pulmonary disease, unspecified Qualifiers: COPD type: emphysema Emphysema type: unspecified Qualified Code(s): J43.9 - Emphysema, unspecified (4) Hepatitis C: Status: Chronic Code(s): B19.20 - Unspecified viral hepatitis C without hepatic coma Qualifiers: Viral hepatitis chronicity: chronic Hepatic coma status: without hepatic coma Qualified Code(s): B18.2 - Chronic viral hepatitis C (5) Hypertension: Status: Chronic Code(s): I10 - Essential (primary) hypertension
--- NOTE | 2023-09-15 19:01 | PC.NURSE ---
I s/w Dr. Beth regarding Aerobic Blood culture- Staph hominis- Pt was d/c on Levaquin and it is sensitive to Levaquin.
== END 2023-09-08 12:22 | disposition home or self-care (01) ==
LOC: ER 21:59 → 2ND 22:11
PROVIDERS: Nurse Practitioner Critical Care Medicine; Admitting Provider Internal Medicine; Emergency Provider Emergency Medicine; PCP Physician Assistant; Visit Provider Internal Medicine
DX: J18.9 Pneumonia, unspecified organism (principal); I10 Essential (primary) hypertension; B18.2 Chronic viral hepatitis C; F17.210 Nicotine dependence, cigarettes, uncomplicated; J44.1 Chronic obstructive pulmonary disease with (acute) exacerbation; F41.9 Anxiety disorder, unspecified
CPT/HCPCS: 36415; 71046; 80048; 80053; 82803; 83605; 84484; 85007; 85025; 87040; 87070; 87205; 87636; 93005; 94640; 99285; G0378; J0456; J0696

== ENCOUNTER 2024-04-10 13:34 | Outpatient (CLI) | payer MEDICAID, SELFPAY ==
[2024-04-10 20:41] LABS: Basophils # 0.1 K/mm3 (0-0.2); Basophils % 1.1 % (0.1-2.0); Eosinophils # 0.2 K/mm3 (0.0-0.4); Eosinophils % 4.3 % (0.1-12.0); Hematocrit 40.1 % (37.0-47.0); Hemoglobin 12.6 g/dL (12.2-16.2); Lymphocytes # 1.9 K/mm3 (0.7-4.5); Lymphocytes % 37.7 % (10-50); Mean Corpuscular HGB Conc 31.3 g/dL (31.8-35.4); Mean Corpuscular Hemoglobin 30.7 pg (27.0-31.2); Mean Corpuscular Volume 98.1 fl (81-99); Mean Platelet Volume 9.7 fl (7.4-10.4); Monocytes # 0.3 K/mm3 (0.1-1.0); Monocytes % 5.9 % (1.7-9.3); Neutrophils # 2.6 K/mm3 (1.8-7.8); Platelet Count 225 K/mm3 (142-424); Red Blood Count 4.09 M/mm3 (4.20-5.40)
[2024-04-10 21:11] LABS: Alanine Aminotransferase 102 U/L (12-78); Albumin Level 4.4 g/dl (3.5-5.0); Albumin/Globulin Ratio 1.1 (1.1-1.8); Alkaline Phosphatase 80 U/L (38-126); Anion Gap 13.6 mEq/L (5-15); Aspartate Amino Transferase 107 U/L (14-36); Bilirubin,Total 0.5 mg/dl (0.2-1.3); Blood Urea Nitrogen 22 mg/dl (7-17); Calcium 9.2 mg/dl (8.4-10.2); Carbon Dioxide 25 mmol/L (22.0-30.0); Chloride 104 mmol/L (98-107); Erythrocyte Sedimentation Rate 14 mm/hr (0-30); Estimated Glomerular Filt Rate 86 ml/min (>60); GFR (African American) 104 ML/MIN (>60); Globulin 3.9 g/dL (1.3-3.2); Glucose 95 mg/dl (74-100); Potassium 3.6 mmoL/L (3.5-5.1); Sodium 139 mmol/L (136-145); Total Protein,Serum 8.3 g/dl (6.3-8.2)
[2024-04-10 21:18] LABS: C-Reactive Protein 0.4 mg/L (0-4)
[2024-04-12 14:16] LABS: Anti-Centromere B Antibodies <0.2 AI (0.0-0.9); Anti-Cyclic Citrullinated Pept 5 units (0-19); Anti-DNA (DS) Ab Qn <1 IU/mL (0-9); Anti-Jo-1 <0.2 AI (0.0-0.9); Anti-Smith Antibody <0.2 AI (0.0-0.9); Antichromatin Antibodies <0.2 AI (0.0-0.9); Antiscleroderma-70 Antibodies 0.3 AI (0.0-0.9); RNP Antibodies 0.5 AI (0.0-0.9); Sjogren's Anti-SS-A <0.2 AI (0.0-0.9); Sjogren's Anti-SS-B <0.2 AI (0.0-0.9)
[2024-04-12 15:12] LABS: RA Latex Turbid. 36.8 IU/mL (<14.0)
[2024-04-14 23:08] LABS: HCV Genotype Charge YES; Hepatitis C Genotype 3 (.)
[2024-04-17 15:02] LABS: Hepatitis C Antibody Reactive
[2024-04-17 15:07] LABS: Fibrosis Score 0.66; Fibrosis Stage F3
[2024-04-17 15:08] LABS: Alpha 2-Macroglobulins, Qn 342; Necroinflammat Activity Grade A3
[2024-04-17 15:09] LABS: Apolipoprotein A-1 98; Bilirubin, Total 0.2; Haptoglobin 41
[2024-04-17 15:10] LABS: ALT (SGPT) P5P 103; GGT 70
== END 2024-04-10 23:59 | disposition home or self-care (01) ==
LOC: LAB.DROPOF 04-11 13:34
PROVIDERS: PCP Physician Assistant; Visit Provider Physician Assistant
DX: F32.9 Major depressive disorder, single episode, unspecified (principal); M19.90 Unspecified osteoarthritis, unspecified site; I10 Essential (primary) hypertension; B18.2 Chronic viral hepatitis C
CPT/HCPCS: 80053; 81596; 85025; 85651; 86140; 86200; 86225; 86235; 86431; 87380; 87522; 87902

== ENCOUNTER 2024-12-31 05:30 | Emergency (ER) | payer MEDICAID, SELFPAY ==
[2024-12-31 05:30] VITALS: BP 147/104; PULSE 119; RESP 20; TEMP 36.4; O2SAT 96; BMI 18.3
[2024-12-31] MEDS: hydrOXYzine pamoate 25MG CAPSULE 50 MG PO (05:43)
[2024-12-31 05:47] LABS: Coronavirus 19, PCR Not Detected (NotDetected); Influenza A, PCR Not Detected (NotDetected); Influenza B, PCR Not Detected (NotDetected)
--- NOTE | 2024-12-31 05:52 | ED_ITS ---
Discharge Plan Disposition Patient Disposition: Home, Self-Care Prescriptions Prescriptions: No Action diclofenac sodium [Voltaren Arthritis Pain] 1 % gel 2 g topical QID Qty: 100 2RF Rx Instructions: apply to single elbow, wrist or hand; for hand includes palm/fingers/back of hand hydroxyzine pamoate 50 mg capsule 50 mg PO TIDP PRN (Reason: anxiety) Qty: 90 5RF metoprolol succinate 25 mg tablet extended release 24 hr See Rx Instructions .ROUTE .COMPLEX Qty: 90 0RF Dose Instruction: TAKE 1 TABLET BY MOUTH ONCE DAILY FOR HIGH BLOOD PRESSURE Rx Instructions: TAKE 1 TABLET BY MOUTH ONCE DAILY FOR HIGH BLOOD PRESSURE sertraline 100 mg tablet 100 mg PO DAILY Qty: 90 1RF albuterol sulfate [Ventolin HFA] 90 mcg/actuation HFA aerosol inhaler 1 inh inhalation QID PRN (Reason: shortness of breath or wheezing) Qty: 18 2RF Vraylar 1.5 mg capsule 1.5 mg PO HS Qty: 30 2RF trazodone 50 mg tablet 50 mg PO HS Qty: 90 0RF valacyclovir 500 mg tablet 500 mg PO DAILY Qty: 90 1RF sofosbuvir-velpatasvir [Epclusa] 400-100 mg tablet 1 tab PO DAILY 84 Days Qty: 84 0RF Referrals Follow up/Referrals: Yana Feldman APRN [Primary Care Provider] - See instructions Activity Restrictions/Add. Instructions Additional Instructions/Restrictions: Please follow-up with your primary care provider. Please return to the emergency department if you develop any new or worsening symptoms or become concerned for your health. Clinical Impressions Clinical Impression: Anxiety URI (upper respiratory infection) Qualifiers: URI type: unspecified viral URI Qualified Code(s): J06.9 - Acute upper respiratory infection, unspecified Print Language Print Language: Citizen Of [place] Discharge ED Provider: Richard Santillan General Adult HPI General Chief complaint: Anxiety Stated complaint: SOA Time Seen by Provider: 12/31/24 05:30 Mode of Arrival: Wheelchair Source of Information: Patient Limitations: No Limitations Description of Symptoms (Recalled from ER Triage Doc. by RN): pt reports she has had a sore throat x4 days and short of air for 12 hours. pt reports this is a anxiety attack History of Present Illness HPI narrative: 59-year-old female with history of anxiety and depression COPD presents for anxiety, sore throat and shortness of breath. Patient reports that she is having an anxiety attack. Also complains of sore throat and shortness of breath. She admits to marijuana usage and gabapentin, but denies meth or cocaine. Patient is acting as if she is high on meth at the moment with flailing movements, irregular speech, difficulty holding a conversation. She reports multiple stressors recently. Related Data Previous Rx's ?Medication ?Instructions ?Recorded sofosbuvir 400 mg-velpatasvir 100 1 tab PO DAILY 12 weeks #84 tabs 04/10/24 mg tablet (Epclusa) trazodone 50 mg tablet 50 mg PO HS Sleep #90 tabs 04/10/24 valacyclovir 500 mg tablet 500 mg PO DAILY Infection #90 tabs 04/10/24 Ventolin HFA 90 mcg/actuation 1 inh inhalation QID PRN shortness 10/04/24 aerosol inhaler (albuterol sulfate) of breath or wheezing #18 grams cariprazine 1.5 mg capsule 1.5 mg PO HS #30 caps 10/04/24 (Vraylar) diclofenac sodium 1 % topical gel 2 g topical QID #100 grams 10/04/24 (Voltaren Arthritis Pain) hydroxyzine pamoate 50 mg capsule 50 mg PO TIDP PRN anxiety #90 caps 10/04/24 metoprolol succinate 25 mg See Rx Instructions .Route 10/04/24 tablet,extended release 24 hr .COMPLEX #90 tabs sertraline 100 mg tablet 100 mg PO DAILY Mood #90 tabs 10/04/24 Allergies Allergy/AdvReac Type Severity Reaction Status Date / Time No Known Allergies Allergy Verified 10/04/24 15:23 [facility] Disclaimer: The information contained in this section may have been updated after the patient was seen, as this information can be updated by other users. Medical History (Updated 12/31/24 @ 06:19 by Richard Santillan MD) Depression delivered by caesarean section, 1,500-1,749 grams, 29-30 completed weeks Personal history of nicotine dependence Hepatitis C Nicotine dependence Anxiety Smoker COPD (chronic obstructive pulmonary disease) Chest pain Hypertension Social History Smoking Status: Current every day smoker tobacco type: cigarettes packs per day: 1 alcohol intake: current alcohol intake frequency: holidays/special occasions only substance use type: denies use current occupational status: employed Travel in the last 8 weeks: None household members: spouse, family and children housing: house caffeine: Yes Have you lived/traveled outside US in past 30 days?: No Contact w/someone who lives/traveled outside US past 30 days?: No Exposure to someone with infectious disease in past 14 days?: No Do you have a fever (greater than 100.4 F or 38 C)?: No Have you tested positive for COVID-19: No Exposed to someone with COVID-19 in past 14 days?: No Do you have a sore throat?: No Do you have a cough?: No Do you have any weakness?: No Do you have any diarrhea?: No Are you experiencing any unusual bleeding?: No Do you have any muscle aches/pain?: No Do you have any abdominal pain?: No Are you experiencing loss of taste or smell?: No Other Medical History Have you received the Flu Vaccine for this season: No Have you received the Pneumonia Vaccine: No ROS Obtained: Yes All systems reviewed & no additional complaints except as documented Physical Exam General General appearance: alert and anxious Head Head exam: atraumatic and normocephalic Eye Eye exam: Present normal appearance, PERRL and EOMI ENT ENT exam: Present normal external ear exam and other (No teeth, posterior oropharyngeal erythema) Neck Neck exam: Present normal inspection and full ROM Chest Chest inspection: Present normal inspection and symmetric chest wall rise; Absent tenderness Respiratory Respiratory exam: Present normal lung sounds bilaterally; Absent respiratory distress or wheezes Cardiovascular Cardiovascular exam: Present normal rhythm and tachycardia Abdominal Exam Abdominal exam: Present soft; Absent distention, tenderness or guarding Extremities Exam Extremities exam: Present normal inspection; Absent edema or joint swelling Back Exam Back exam: Present normal inspection; Absent tenderness Neurological Exam Neurological exam: Present alert and oriented X3; Absent motor sensory deficit Psychiatric Psychiatric exam: Present agitated and manic Skin Skin exam: Present warm, dry and normal color Lymphatic Lymphatic Findings: no adenopathy Medical Decision Making Medical Records Medical records reviewed: Yes I reviewed the patient's medical records. Screening: Per USPSTF and CDC recommendations, given the prevalence of disease in our region, it is our hospital?s policy to screen for HIV and viral Hepatitis for all patients aged 18 and over and those with ongoing risk factors. Nitish Inquiry Pt receiving controlled substance: No Nitish was queried for this patient: No Vital Signs: 12/31/24 05:30 12/31/24 06:21 Temperature 97.5 F L 97.9 F Temperature Source Temporal Artery Scan Temporal Artery Scan Pulse Rate 96 H Pulse Rate [Right] 119 H Respiratory Rate 20 16 Blood Pressure 120/72 Blood Pressure [Right Arm] 147/104 H Blood Pressure Mean [Right Arm] 118 Blood Pressure Source Automatic Cuff Blood Pressure Position Supine 02 Sat by Pulse Oximetry 96 Oxygen Delivery Method Room Air Lab Data Lab results reviewed: Yes I reviewed the patient's lab results. Lab Results 12/31/24 05:41: SARS-CoV-2 (PCR) Not detected, Influenza A Untype (PCR) Not detected, Influenza Type B (PCR) Not detected Orders (Tests/Meds): ED MEDICATIONS Generic Name Dose Route Start Last Admin Trade Name Freq PRN Reason Stop Dose Admin Albuterol/Ipratropium 3 ml 12/31/24 06:24 Ipratropium/Albuterol 3 Ml Neb IH 12/31/24 06:25 ONCE ONE Discontinued Medications Generic Name Dose Route Start Last Admin Trade Name Freq PRN Reason Stop Dose Admin Hydroxyzine Pamoate 50 mg 12/31/24 05:40 12/31/24 05:43 Hydroxyzine Pamoate 25mg Capsule PO 12/31/24 05:41 50 mg ONCE ONE Administration ORDERS Category Date Time Status CXR --portable [XR chest portable] Stat Exams 12/31/24 06:24 Stop Req Rapid PCR Covid and Flu A/B Stat Lab 12/31/24 05:41 Completed Medical Decision Narrative: 59-year-old female with reported history of COPD, anxiety depression, hepatitis C presents for reported anxiety attack and shortness of breath. History was obtained via interactive discussion with patient. On arrival, patient is [afebrile, hemodynamically stable, satting appropriately, alert, oriented x4, GCS 15], moving all extremities spontaneously. Full physical exam performed and significant for anxious person with clear lungs bilaterally and oropharyngeal erythema, agitated appearing.. Differential includes but is not limited to anxiety attack, COVID flu, intoxication, rosalia. Patient was given 50 of Vistaril for symptomatic management and correction of underlying abnormalities. Workup initiated including COVID flu swab. On reassessment patient remains anxious. COVID flu swab is negative. Denies any suicidal homicidal ideation. She continues to flail around the room. Continues to state her throat really hurts and her voice is gone. Instructed to sit still and relax, she is able to breathe regularly. She continues to have clear lungs bilaterally with no wheezing on my exam. She continues to flail and fidget. I ordered a DuoNeb and chest x-ray given patient reports she is still symptomatic, but she ultimately left AMA prior to interventions. Procedures Risk/Benefits of Procedure(s) Were Explained: Yes Critical Care Critical Care Time Critical Care Time: No
[2024-12-31 06:21] VITALS: BP 120/72; PULSE 96; RESP 16; TEMP 36.6; O2SAT 97
--- NOTE | 2024-12-31 06:27 | PC.NURSE ---
Patient anxious, yelling at staff and fidgeting with erratic movements. Provider offered patient a breathing treatment and a chest xray. She decided to leave without further workup.
== END 2024-12-31 06:30 | disposition left against medical advice (07) ==
PROVIDERS: Emergency Provider Emergency Medicine; PCP Family Medicine
DX: J06.9 Acute upper respiratory infection, unspecified (principal); R06.02 Shortness of breath; J02.9 Acute pharyngitis, unspecified; F41.9 Anxiety disorder, unspecified; F32.A Depression, unspecified; J44.9 Chronic obstructive pulmonary disease, unspecified; F17.210 Nicotine dependence, cigarettes, uncomplicated
CPT/HCPCS: 87636; 99283

== ENCOUNTER 2025-01-25 08:56 | Emergency (ER) | payer MEDICAID, SELFPAY ==
[2025-01-25 09:20] VITALS: BP 113/78; PULSE 101; RESP 15; TEMP 36.9; O2SAT 100; BMI 15.5
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
[2025-01-25 09:32] VITALS: BP 107/70; PULSE 96; RESP 18; TEMP 36.5; O2SAT 100
== END 2025-01-25 09:37 | disposition home or self-care (01) ==
PROVIDERS: Emergency Provider Student in an Organized Health Care Education/Training Program; PCP Internal Medicine
DX: S71.101A Unspecified open wound, right thigh, initial encounter (principal); S51.802A Unspecified open wound of left forearm, initial encounter; Y09 Assault by unspecified means
CPT/HCPCS: 99282

== ENCOUNTER 2025-02-06 14:09 | Outpatient (CLI) | payer MEDICAID, SELFPAY ==
[2025-02-06 14:18] LABS: Hep A Ab, IgM ND
[2025-02-06 14:52] LABS: Basophils % 0.6 % (0.1-2.0); Eosinophils # 0.1 K/mm3 (0.0-0.4); Eosinophils % 2.1 % (0.1-12.0); Hemoglobin 12.1 g/dL (12.2-16.2); Lymphocytes # 2.6 K/mm3 (0.7-4.5); Lymphocytes % 39.3 % (10-50); Mean Corpuscular HGB Conc 32.7 g/dL (31.8-35.4); Mean Corpuscular Volume 91.6 fl (81-99); Monocytes # 0.5 K/mm3 (0.1-1.0); Monocytes % 6.9 % (1.7-9.3); Neutrophils # 3.3 K/mm3 (1.8-7.8); Neutrophils % 50.8 % (37.0-80.0); Platelet Count 208 K/mm3 (142-424); Red Blood Count 4.04 M/mm3 (4.20-5.40); Red Cell Distribution Width 13.9 % (11.5-17.5); White Blood Count 6.6 K/mm3 (4.8-10.8)
[2025-02-06 15:09] LABS: INR 1.01 (0.9-1.1); Prothrombin Time 11.3 seconds (10.1-12.5)
[2025-02-06 15:55] LABS: Alanine Aminotransferase 68 U/L (12-78); Albumin Level 4.5 g/dl (3.5-5.0); Albumin/Globulin Ratio 1.5 (1.1-1.8); Alkaline Phosphatase 45 U/L (38-126); Anion Gap 11.5 mEq/L (5-15); Aspartate Amino Transferase 90 U/L (14-36); Bilirubin,Total 0.4 mg/dl (0.2-1.3); Blood Urea Nitrogen 18 mg/dl (7-17); Calcium 9.3 mg/dl (8.4-10.2); Carbon Dioxide 24 mmol/L (22.0-30.0); Chloride 109 mmol/L (98-107); Estimated Glomerular Filt Rate 102 ml/min (>60); GFR (African American) 124 ML/MIN (>60); Glucose 90 mg/dl (74-100); Potassium 4.5 mmoL/L (3.5-5.1); Sodium 140 mmol/L (136-145); Total Protein,Serum 7.5 g/dl (6.3-8.2)
[2025-02-07 08:13] LABS: Hep A Ab, Total Negative (Negative); Hep B Core Ab, Total Negative (Negative); Hep B Surface Ab, Qual Non Reactive (.); Hepatitis B Surface Antigen Negative (Negative)
[2025-02-08 23:54] LABS: Hepatitis C Genotype 3 (.)
== END 2025-02-06 23:59 | disposition home or self-care (01) ==
LOC: LAB 14:10
PROVIDERS: PCP Family Medicine; Visit Provider Family Medicine
DX: B18.2 Chronic viral hepatitis C (principal)
CPT/HCPCS: 36415; 80053; 85025; 85610; 86704; 86706; 86708; 87340; 87902

== ENCOUNTER 2025-02-08 07:46 | Outpatient (RCR) | payer MEDICAID, SELFPAY ==
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
== END 2025-02-08 23:59 | disposition home or self-care (01) ==
LOC: PT 07:46
PROVIDERS: Visit Provider Internal Medicine
DX: R53.1 Weakness (principal); R29.6 Repeated falls
CPT/HCPCS: 97163

== ENCOUNTER 2025-02-12 15:18 | Outpatient (CLI) | payer MEDICAID, SELFPAY ==
[2025-02-12 17:18] LABS: HIV Combo NEGATIVE (Negative)
[2025-02-12 17:26] LABS: Hepatitis C Ab Qual. W/ RFX REACTIVE (Negative)
[2025-02-13 09:31] LABS: Hep B Core Ab, Total Negative (Negative)
[2025-02-15 03:40] LABS: ALT (SGPT) P5P 84 IU/L (0-40); Alpha 2-Macroglobulins, Qn 390 mg/dL (110-276); Apolipoprotein A-1 89 mg/dL (116-209); Bilirubin, Total 0.3 mg/dL (0.0-1.2); Fibrosis Score 0.72 (0.00-0.21); GGT 41 IU/L (0-60); Haptoglobin 55 mg/dL (33-346); Necroinflammat Activity Grade A3-Severe activity (.); Necroinflammat Activity Score 0.65 (0.00-0.17)
== END 2025-02-12 23:59 | disposition home or self-care (01) ==
LOC: LAB 15:18
PROVIDERS: PCP Family Medicine; Visit Provider Family Medicine
DX: B18.2 Chronic viral hepatitis C (principal)
CPT/HCPCS: 36415; 81517; 82172; 82247; 82977; 83010; 83883; 84460; 86704; 86803; 87389; 87522

== ENCOUNTER 2025-03-01 14:00 | Outpatient (RCR) | payer MEDICAID, SELFPAY | END 2025-03-01 23:59 | disposition home or self-care (01) | LOC: PT 14:00 | PROVIDERS: Visit Provider Internal Medicine | DX: R53.1 Weakness (principal); R29.6 Repeated falls | CPT/HCPCS: 97110 ==

== ENCOUNTER 2025-04-10 09:47 | Emergency (ER) | payer MEDICAID, SELFPAY ==
[2025-04-10] VITALS (7 sets, daily range): BP systolic 121–152; BP diastolic 66–86; PULSE 55–76; RESP 14–18; TEMP 36.8–37.1; O2SAT 98–100; BMI 18.1
--- NOTE | 2025-04-10 09:47 | ECG_ITS ---
APPROVED REPORT Exam: Resting ECG HR:68 bpm ECG Measurements Heart Rate 68 AXES NH 149 P 60 QRSd 72 QRS 72 QT 386 T 70 QTc 402 Conclusion SINUS RHYTHM VOLTAGE CRITERIA FOR LVH [MEETS CRITERIA IN ONE OF: R(aVL), S(V1), R(V5), R(V5/V6)+S(V1)] ABNORMAL ECG No STEMI Electronically signed by : REGULO DO, 04/11/2025 02:56:38
--- NOTE | 2025-04-10 10:03 | CT_ITS ---
FINAL REPORT TECHNIQUE: Thin section axial CT with contrast with multiplanar reconstruction This study was performed with techniques to keep radiation doses as low as reasonably achievable, (ALARA). Individualized dose reduction techniques using automated exposure control or adjustment of mA and/or kV according to the patient's size were employed. CLINICAL HISTORY: R lower chest pain, midsternal pain COMPARISON: None FINDINGS: Pulmonary vessels enhance in normal fashion without evidence of embolism. Thoracic aorta shows no dissection or aneurysm. No pulmonary mass or infiltrate is present. Minimal dependent atelectasis is noted. There is no significant pleural effusion. There is no significant pericardial effusion. No mediastinal or hilar adenopathy is present. IMPRESSION: 1. No evidence of pulmonary embolism, aortic dissection, or aortic aneurysm. Reviewed, Interpreted and Dictated by Rustam Garvin MD Transcribed by Micaela Aguiar Authenticated and [facility]
--- NOTE | 2025-04-10 10:03 | CT_ITS ---
FINAL REPORT TECHNIQUE: Oral and IV contrast enhanced exam This study was performed with techniques to keep radiation doses as low as reasonably achievable, (ALARA). Individualized dose reduction techniques using automated exposure control or adjustment of mA and/or kV according to the patient''s size were employed. CLINICAL HISTORY: diarrhea, profuse watery, R low chest/upp abd pain FINDINGS: Abdomen: No acute density is seen within the lung bases. There are multiple calcified gallstones measuring up to 12 mm without acute gallbladder disease. There is mild biliary ductal dilatation measuring up to 10 mm. The pancreatic duct is normal. Solid abdominal organs are unremarkable. No bowel obstruction is present. There is no free air. No fluid collection is seen. There is no adenopathy. Pelvis: The appendix is normal. There are prominent periuterine veins which may be seen with pelvic venous congestion. There is no free fluid. Pelvic bowel loops are unremarkable. No pelvic mass is seen. IMPRESSION: No bowel obstruction or inflammatory changes. Mild biliary ductal dilatation without obstructing stone. Cholelithiasis. Reviewed, Interpreted and Dictated by Rustam Garvin MD Transcribed by Ailyn Nicolas Authenticated and [facility]
[2025-04-10 10:11] LABS: Basophils # 0.1 K/mm3 (0-0.2); Basophils % 0.7 % (0.1-2.0); Eosinophils # 0.4 Kmm3 (0.0-0.4); Eosinophils % 4.9 % (0.1-12.0); Hematocrit 37.3 % (37.0-47.0); Hemoglobin 12.1 g/dL (12.2-16.2); Immature Granulocytes # 0.02 10^3uL; Immature Granulocytes % 0.3 %; Lymphocytes # 2.5 K/mm3 (0.7-4.5); Lymphocytes % 33.6 % (10-50); Mean Corpuscular HGB Conc 32.4 g/dL (31.8-35.4); Mean Corpuscular Hemoglobin 29.7 pg (27.0-31.2); Mean Corpuscular Volume 91.4 fl (81-99); Mean Platelet Volume 9.6 fl (7.4-10.4); Monocytes # 0.5 K/mm3 (0.1-1.0); Monocytes % 6.8 % (1.7-9.3); Neutrophils # 4.1 K/mm3 (1.8-7.8); Neutrophils % 53.7 % (37.0-80.0); Nucleated Red Blood Cells # 0 10^3/uL; Nucleated Red Blood Cells % 0 %; Platelet Count 194 K/mm3 (142-424); Red Blood Count 4.08 M/mm3 (4.20-5.40); Red Cell Distribution Width 13.6 % (11.5-17.5); Red Cell Distribution Width-SD 45.7 fL; White Blood Count 7.5 K/mm3 (4.8-10.8)
[2025-04-10 10:16] LABS: Chloride 110 mmol/L (98-107)
[2025-04-10 10:17] LABS: Potassium 4.1 mmoL/L (3.5-5.1); Sodium 141 mmol/L (136-145)
[2025-04-10 10:19] LABS: Alanine Aminotransferase 16 U/L (12-78); Albumin/Globulin Ratio 1.3 (1.1-1.8); Anion Gap 9.1 mEq/L (5-15); Aspartate Amino Transferase 31 U/L (14-36); Blood Urea Nitrogen 16 mg/dl (7-17); Carbon Dioxide 26 mmol/L (22.0-30.0); Creatinine Clearance Estimated 68 mL/min (50-200); Estimated Glomerular Filt Rate 86 ml/min (>60); GFR (African American) 104 ML/MIN (>60); Globulin 3.1 g/dL (1.3-3.2); Total Protein,Serum 7.1 g/dl (6.3-8.2)
[2025-04-10 10:20] LABS: Alkaline Phosphatase 68 U/L (38-126); Bilirubin,Total 0.2 mg/dl (0.2-1.3); Calcium 9.4 mg/dl (8.4-10.2); Glucose 109 mg/dl (74-100); Lipase 258 U/L (23-300); Magnesium 1.8 mg/dl (1.6-2.3); Phosphorous 3.8 mg/dl (2.5-4.5)
[2025-04-10 10:31] LABS: Troponin I < 0.01 ng/ml (0.00-0.034)
[2025-04-10 10:36] LABS: T4 (Thyroxine) 6.1 ug/dl (5.53-11.0)
[2025-04-10] MEDS: FAMOTIDINE 20MG/2ML VIAL 20 MG IV (10:40)
[2025-04-10] MEDS: KETOROLAC 30MG/ML VIAL 15 MG IV (10:40)
[2025-04-10] MEDS: LACTATED RINGERS 1000ML 1,000 ML 999 ML IV (10:40)
[2025-04-10] MEDS: ACETAMINOPHEN 500MG TAB 1000 MG PO (10:41)
[2025-04-10] MEDS: SODIUM CHLORIDE 0.9% 10ML VIAL 8 ML IV (10:42)
[2025-04-10] MEDS: SODIUM CHLORIDE 0.9% 10ML SYR (RAD ONLY) 10 ML IV (10:47)
[2025-04-10] MEDS: IOPAMIDOL-370 (76%);100ML BOTTLE 80 ML IV (10:47)
[2025-04-10] MEDS: 0.9 % SODIUM CHLORIDE 50 ML VIAL IV (10:47)
[2025-04-10 10:49] LABS: Thyroid Stimulating Hormone 0.11 uIU/mL (0.465-4.68)
--- NOTE | 2025-04-10 11:10 | [facility].EDCP ---
Discharge Plan Disposition Patient Disposition: Home, Self-Care Condition: Good Prescriptions Prescriptions: No Action amoxicillin-pot clavulanate 875-125 mg tablet 1 tab PO BID Qty: 14 0RF sofosbuvir-velpatasvir [Epclusa] 400-100 mg tablet 1 tab PO DAILY 84 Days Qty: 84 0RF mupirocin 2 % ointment 1 applic topical BID Qty: 15 2RF valacyclovir 500 mg tablet 500 mg PO DAILY Qty: 90 1RF diclofenac sodium [Voltaren Arthritis Pain] 1 % gel 2 g topical QID Qty: 100 2RF Rx Instructions: apply to single elbow, wrist or hand; for hand includes palm/fingers/back of hand hydroxyzine pamoate 50 mg capsule 50 mg PO TIDP PRN (Reason: anxiety) Qty: 90 5RF metoprolol succinate 25 mg tablet extended release 24 hr See Rx Instructions .ROUTE .COMPLEX Qty: 90 0RF Dose Instruction: TAKE 1 TABLET BY MOUTH ONCE DAILY FOR HIGH BLOOD PRESSURE Rx Instructions: TAKE 1 TABLET BY MOUTH ONCE DAILY FOR HIGH BLOOD PRESSURE sertraline 100 mg tablet 100 mg PO DAILY Qty: 90 1RF trazodone 50 mg tablet 50 mg PO HS Qty: 90 0RF albuterol sulfate [Ventolin HFA] 90 mcg/actuation HFA aerosol inhaler 1 inh inhalation QID PRN (Reason: shortness of breath or wheezing) Qty: 18 2RF sofosbuvir-velpatasvir [Epclusa] 400-100 mg tablet 1 tab PO DAILY 84 Days Qty: 84 0RF Referrals Follow up/Referrals: Ananth Odonnell MD [Primary Care Provider] - See instructions Abdoul Crowe MD [Staff Physician] - See instructions Activity Restrictions/Add. Instructions Additional Instructions/Restrictions: You were evaluated in the emergency department today. At this time, both your labs and imaging are reassuring. Your TSH is a little bit low, which your primary care provider can help follow-up on an outpatient basis to make sure you do not have high thyroid. Please follow-up closely with your primary care provider as well as with cardiology given your chest pain. Return to the emergency department for new or worsening symptoms. Clinical Impressions Clinical Impression: Chest pain, Diarrhea, Low TSH level Instructions Patient Instructions: DI for Atypical Chest Pain, DI for Diarrhea and Traveler's Diarrhea -- Adult Print Language Print Language: Telugu Discharge ED Provider: Inez Vergara HPI General Chief Complaint: Chest Pain Stated Complaint: chest pain Time Seen by Provider: 04/10/25 09:49 Mode of Arrival: Ambulatory Source of Information: Patient Description of Symptoms (Recalled from ER Triage Doc. by RN): pt presents to ED with c/o right sided chest pain that awoke her this am. pt c/po right sided rib pain with swelling ongoing for 3-4 days. pt reports right arm pain ongoing for 3-4 days ago. pt reports seeing pcp last wednesday and diagnosed with bronchitits and given abx, unsure of name. pt reports productive cough ongoing for the past 2 weeks. pt reports diarrhea ongoing for the past 3 days. 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 Patient states that she has been sick now for 2 weeks with URI type symptoms and diarrhea. She has been seen by her primary care provider 04/05/2025 for this and was prescribed Augmentin, which she has been taking but she continues to have significant cough, right-sided chest pain and swelling, and diarrhea. She states diarrhea is watery and nonbloody, nonmelanotic. She has no significant abdominal pain with this, but she states her right upper part of her abdomen is swollen. Related Data Previous Rx's ?Medication ?Instructions ?Recorded sofosbuvir 400 mg-velpatasvir 100 1 tab PO DAILY 12 weeks #84 tabs 04/10/24 mg tablet (Epclusa) valacyclovir 500 mg tablet 500 mg PO DAILY Infection #90 tabs 01/18/25 diclofenac sodium 1 % topical gel 2 g topical QID #100 grams 01/26/25 (Voltaren Arthritis Pain) hydroxyzine pamoate 50 mg capsule 50 mg PO TIDP PRN anxiety #90 caps 01/26/25 metoprolol succinate 25 mg See Rx Instructions .Route 01/26/25 tablet,extended release 24 hr .COMPLEX #90 tabs sertraline 100 mg tablet 100 mg PO DAILY Mood #90 tabs 01/26/25 trazodone 50 mg tablet 50 mg PO HS Sleep #90 tabs 01/26/25 Ventolin HFA 90 mcg/actuation 1 inh inhalation QID PRN shortness 02/06/25 aerosol inhaler (albuterol sulfate) of breath or wheezing #18 grams mupirocin 2 % topical ointment 1 applic topical BID #15 grams 02/06/25 sofosbuvir 400 mg-velpatasvir 100 1 tab PO DAILY 12 weeks #84 tabs 02/14/25 mg tablet (Epclusa) amoxicillin 875 mg-potassium 1 tab PO BID #14 tabs 04/05/25 clavulanate 125 mg tablet Allergies Allergy/AdvReac Type Severity Reaction Status Date / Time No Known Allergies Allergy Verified 04/05/25 11:43 [facility] Disclaimer: The information contained in this section may have been updated after the patient was seen, as this information can be updated by other users. Medical History Menopause Sinusitis Depression delivered by caesarean section, 1,500-1,749 grams, 29-30 completed weeks Personal history of nicotine dependence Hepatitis C Nicotine dependence Anxiety Smoker COPD (chronic obstructive pulmonary disease) Chest pain Hypertension Social History Smoking Status: Current every day smoker tobacco type: cigarettes packs per day: 1 alcohol intake: current alcohol intake frequency: holidays/special occasions only substance use type: denies use current occupational status: employed Travel in the last 8 weeks?: None household members: spouse, family and children housing: house caffeine: Yes Have you lived/traveled outside [place] in past 30 days?: No Contact w/someone who lives/traveled outside [place] past 30 days?: No Exposure to someone with infectious disease in past 14 days?: No Do you have a fever (greater than 100.4 F or 38 C)?: No Have you tested positive for COVID-19?: No Exposed to someone with COVID-19 in past 14 days?: No Do you have a sore throat?: No Do you have a cough?: No Do you have any weakness?: No Do you have any diarrhea?: No Are you experiencing any unusual bleeding?: No Do you have any muscle aches/pain?: No Do you have any abdominal pain?: No Are you experiencing loss of taste or smell?: No Other Medical History Have you received the Flu Vaccine for this season: No Have you received the Pneumonia Vaccine: No ROS Obtained: Yes All systems reviewed & no additional complaints except as documented Physical Exam General General appearance: alert and in no apparent distress Head Head exam: atraumatic and normocephalic Eye Eye exam: Present normal appearance, PERRL and EOMI ENT ENT exam: Present normal exam, normal oropharynx, mucous membranes moist and normal external ear exam Neck Neck exam: Present normal inspection, full ROM and trachea midline; Absent tenderness Chest Chest inspection: Present normal inspection and symmetric chest wall rise; Absent tenderness Respiratory Respiratory exam: Present normal lung sounds bilaterally; Absent respiratory distress, wheezes, stridor or accessory muscle use Cardiovascular Cardiovascular exam: Present regular rate and normal rhythm Abdominal Exam Abdominal exam: Present soft; Absent distention, tenderness or guarding Extremities Exam Extremities exam: Present normal inspection, full ROM and normal capillary refill; Absent tenderness or edema Back Exam Back exam: Present normal inspection and full ROM; Absent tenderness Neurological Exam Neurological exam: Present alert, oriented X3, CN II-XII intact and normal gait; Absent motor sensory deficit Psychiatric Psychiatric exam: Present normal affect and normal mood Skin Skin exam: Present warm and dry HEART Score HEART Score HEART Score assessment performed?: Yes History (anamnesis): Slightly suspicious ECG: Normal Age: 45-65 years Risk factors: 1-2 risk factors Troponin: </= normal limit HEART Score: 2 Critical Care Critical Care Time Critical Care Time: No Medical Decision Making Nitish Inquiry Pt receiving controlled substance: No Vital Signs Vital Signs: 04/10/25 09:50 04/10/25 09:56 04/10/25 10:54 Temperature 98.8 F Temperature Source Oral Pulse Rate 74 60 Pulse Rate [Left Radial] 74 Respiratory Rate 14 18 Blood Pressure 152/86 H Blood Pressure [Right Arm] 147/78 H Blood Pressure Mean Blood Pressure Mean [Right Arm] 101 Blood Pressure Source Blood Pressure Source [Right Arm] Automatic Cuff Blood Pressure Position Blood Pressure Position [Right Arm] Supine 02 Sat by Pulse Oximetry 100 100 Oxygen Delivery Method Room Air Room Air 04/10/25 11:00 04/10/25 11:30 04/10/25 12:00 Temperature Temperature Source Pulse Rate 67 65 55 L Pulse Rate [Left Radial] Respiratory Rate 18 18 18 Blood Pressure 143/83 H 139/84 133/84 Blood Pressure [Right Arm] Blood Pressure Mean 115 107 Blood Pressure Mean [Right Arm] Blood Pressure Source Blood Pressure Source [Right Arm] Blood Pressure Position Blood Pressure Position [Right Arm] 02 Sat by Pulse Oximetry 100 100 98 Oxygen Delivery Method 04/10/25 13:17 Temperature 98.2 F Temperature Source Pulse Rate 76 Pulse Rate [Left Radial] Respiratory Rate 18 Blood Pressure 121/66 Blood Pressure [Right Arm] Blood Pressure Mean Blood Pressure Mean [Right Arm] Blood Pressure Source Automatic Cuff Blood Pressure Source [Right Arm] Blood Pressure Position Sitting Blood Pressure Position [Right Arm] 02 Sat by Pulse Oximetry Oxygen Delivery Method Room Air Lab Data Labs: Lab Results 04/10/25 09:57: WBC 7.5, RBC 4.08 L, Hgb 12.1 L, Hct 37.3, MCV 91.4, MCH 29.7, MCHC 32.4, RDW 13.6, Plt Count 194, MPV 9.6, Neut % (Auto) 53.7, Lymph % (Auto) 33.6, Williamson % (Auto) 6.8, Eos % (Auto) 4.9, Baso % (Auto) 0.7, Neut # (Auto) 4.1, Lymph # (Auto) 2.5, Williamson # (Auto) 0.5, Eos # (Auto) 0.4, Baso # (Auto) 0.1, Sodium 141, Potassium 4.1, Chloride 110 H, Carbon Dioxide 26, Anion Gap 9.1, BUN 16, Creatinine 0.70, Estimated Creat Clear 68, Estimated GFR 86, Est GFR ( Amer) 104, Glucose 109 H, Calcium 9.4, Phosphorus 3.8, Magnesium 1.8, Total Bilirubin 0.2, AST 31, ALT 16, Alkaline Phosphatase 68, Troponin I < 0.01, Total Protein 7.1, Albumin 4.0, Globulin 3.1, Albumin/Globulin Ratio 1.3, Lipase 258, TSH 0.11 L, Thyroxine (T4) 6.1 04/10/25 12:19: Troponin I < 0.01 04/10/25 09:57 04/10/25 09:57 Response Orders (Tests/Meds): ED MEDICATIONS Discontinued Medications Generic Name Dose Route Start Last Admin Trade Name Freq PRN Reason Stop Dose Admin Acetaminophen 1,000 mg 04/10/25 10:20 04/10/25 10:41 Acetaminophen 500mg Tab PO 04/10/25 10:21 1,000 mg ONCE ONE Administration Famotidine 20 mg 04/10/25 10:20 04/10/25 10:40 Famotidine 20mg/2ml Vial IV 04/10/25 10:21 20 mg ONCE ONE Administration Lactated Ringer's 1,000 mls @ 999 mls/hr 04/10/25 10:20 04/10/25 10:40 Lactated Ringer's 1000 Ml Bag IV 04/10/25 11:20 999 mls/hr .Q1H1M ONE Administration Iopamidol 80 ml 04/10/25 10:47 04/10/25 10:47 Iopamidol-370 (76%);100ml Bottle IV 04/10/25 10:48 80 ml ONCE ONE Administration Ketorolac Tromethamine 15 mg 04/10/25 10:20 04/10/25 10:40 Ketorolac 30mg/Ml Vial IV 04/10/25 10:21 15 mg ONCE ONE Administration Sodium Chloride 8 ml 04/10/25 10:20 04/10/25 10:42 Sodium Chloride 0.9% 10ml Vial IV 05/10/25 10:19 8 ml NEEDED PRN Administration dilute pepcid Sodium Chloride 50 ml 04/10/25 10:47 04/10/25 10:47 0.9 % Sodium Chloride 50 Ml Vial IV 04/10/25 10:48 50 ml ONCE ONE Administration Sodium Chloride 10 ml 04/10/25 10:47 04/10/25 10:47 Sodium Chloride 0.9% 10ml Syr (Rad Only) IV 04/10/25 10:48 10 ml ONCE ONE Administration ORDERS Category Date Time Status CT abdomen pelvis w con Stat Cat Scan 04/10/25 10:[address] angio chest PE protocol Stat Cat Scan 04/10/25 10:03 Completed Complete Blood Count Auto Diff Stat Lab 04/10/25 09:57 Completed Comprehensive Metabolic Panel Stat Lab 04/10/25 09:57 Completed Lipase Stat Lab 04/10/25 09:57 Completed MAG [Magnesium] Stat Lab 04/10/25 09:57 Completed PHOS [Phosphorous] Stat Lab 04/10/25 09:57 Completed T4 (Thyroxine) Stat Lab 04/10/25 09:57 Completed TSH [Thyroid Stimulating Hormone] Stat Lab 04/10/25 09:57 Completed Trop I [Troponin I] Stat Lab 04/10/25 09:57 Completed Troponin I Q3H Lab 04/10/25 12:19 Completed ECG Data Tracing #1: Attestation: I reviewed this ECG and interpreted as documented below: ECG Narrative: Normal sinus rhythm with a ventricular rate of [address] changes concerning for ischemia. Normal axis and intervals ECG initial impression date: 04/10/25 ECG initial impression time: 09:50 MDM Narrative Medical Decision Narrative: In summary, this patient is a 59-year-old female presenting to the Emergency Department for evaluation of chest pains, right sided pain/swelling. She has had 2 weeks of URI symptoms and diarrhea. Differential diagnoses considered include but are not limited to pneumonia, pneumothorax, pleurisy, PE, ACS, dehydration, cholecystitis, colitis. Ruling out the most morbid conditions drove assessment. It should be noted patient's history includes tobacco abuse, COPD, hepatitis C, hypertension which are likely not at goal therapy. This complicates all aspects of care by increasing patient's risk for morbidity. I reviewed patient's past medical records and noted evaluation by PCP 04/05/2025 and prescription for Augmentin as detailed in HPI. On exam, the patient is sitting upright in no acute distress with normal vitals on cardiac telemetry with exception of mild hypertension. Cardiopulmonary exam is reassuring, abdominal exam demonstrates some mild right upper abdomen tenderness but no rebound or guarding. Workup included CBC, CMP, lipase, troponin, magnesium, TSH, T4, CTA PE protocol, CT abdomen and pelvis with IV contrast. EKG obtained is reassuring. I independently interpreted CT scan prior to the radiologist read and noted no PE, no pneumothorax, no obvious large pneumonia, no obvious acute intestinal inflammation, no concerns for cholecystitis though she does have gallstones. Please see their read for final interpretation. Labs were obtained that demonstrated reassuring CBC with no significant leukocytosis. She has mild anemia, with hemoglobin of 12.1. Chemistry demonstrates low TSH with normal T4, however patient currently has normal vital signs and does not have any symptoms or features of thyroid storm. She does have the diarrhea, but this could be explained by recent infectious pathology as well as starting the Augmentin. For her chest pain, troponin is negative and EKG obtained is reassuring. Second opponent was obtained and was also negative. Ultimately based on labs and imaging, I do not feel that she has any acute life-threatening pathology that requires admission to the hospital for further workup on an inpatient basis. I feel that she is appropriate for discharge home. It is possible that her recent infection with increase in coughing is causing her chest pain and starting the Augmentin in the setting of recent illness as well could be contributing to the diarrhea. I advised that she follow-up very closely with her primary care provider, especially for recheck of her thyroid hormone levels, and I gave her strict return precautions. She was given instructions for supportive management and bowel rest at home. Given chest pain, I also advise that she follow-up with cardiology
[2025-04-10 12:56] LABS: Troponin I < 0.01 ng/ml (0.00-0.034)
== END 2025-04-10 13:19 | disposition home or self-care (01) ==
PROVIDERS: Emergency Provider Emergency Medicine; PCP Family Medicine
DX: R07.89 Other chest pain (principal); R19.7 Diarrhea, unspecified; R94.6 Abnormal results of thyroid function studies; J44.9 Chronic obstructive pulmonary disease, unspecified; F17.210 Nicotine dependence, cigarettes, uncomplicated; I10 Essential (primary) hypertension
CPT/HCPCS: 71275; 74177; 80053; 83690; 83735; 84100; 84436; 84443; 84484; 85025; 93005; 96361; 96374; 96375; 99285; J1885; J7120; Q9967